=== PATIENT | male | born 1995 | race Caucasian/White ===

== ENCOUNTER 2018-02-28 09:48 | Emergency (ER) | payer MEDICAID, SELFPAY ==
[2018-02-28 09:58] VITALS: BP 125/72; PULSE 80; RESP 14; TEMP 37.1; O2SAT 98
--- NOTE | 2018-02-28 10:05 | DI.RPTCT_ITS ---
SYMPTOM/DIAGNOSIS: RLQ PAIN CT ABDOMEN AND PELVIS: Images were performed from the lung bases through the ischial tuberosities after IV and without oral contrast. The appendix is normal in diameter. There are no right lower quadrant inflammatory changes. There is a moderate quantity of stool. No bowel wall thickening or dilatation seen. There are mildly enlarged mesenteric lymph nodes greatest in the right lower quadrant. The findings could indicate mesenteric adenitis. There is no free air, free fluid or abscess. The bladder and prostate are unremarkable. The lung bases are clear. The heart size is normal. The liver, gallbladder, spleen, pancreas and adrenals are unremarkable. There are a few tiny left renal cysts. There is no evidence of renal calculi or hydronephrosis. IMPRESSION: Small mesenteric lymph nodes. This could represent mesenteric adenitis or could be within normal limits for the patient's age. There is no evidence of appendicitis.
[2018-02-28 10:40] LABS: Bilirubin Negative (Negative); Blood Negative (Negative); Clarity Clear; Glucose Negative (Negative); Ketones Negative (Negative); Leukocyte Esterase Negative (Negative); Nitrite Negative (Negative); Specific Gravity 1.025 (1.005-1.025); Urobilinogen 0.2 EU/dL (Up TO 0.2)
[2018-02-28] MEDS: Normal Saline 1,000 ML 1000 ML IV (11:20)
[2018-02-28] MEDS: Ketorolac 30 MG/ML VIAL IVP (11:27)
[2018-02-28] MEDS: Ondansetron O.D.T. 4 MG TABEF PO (11:27)
[2018-02-28 11:31] LABS: Abs Immature Grans 0.02 k/cumm (0.0-0.09); Absolute Basophil Count 0.07 k/cumm (0.0-0.2); Absolute Eosinophil Count 0.21 k/cumm (0.0-0.7); Absolute Lymphocyte Count 1.21 k/cumm (1.2-3.4); Absolute Monocyte Count 0.61 k/cumm (0.11-0.7); Absolute Neutrophil Count 4.21 k/cumm (1.2-6.7); Basophils % 1.1; Eosinophils % 3.3; HCT 45.3 % (40.0-50.0); HGB 16.1 g/dL (13.5-17.5); Immature Grans % 0.3; Lymphocytes % 19.1; Mean Corp. HGB Concentration 35.5 g/dL (32.0-36.0); Mean Corpuscular Hemoglobin 31.4 pg (27.0-33.0); Mean Corpuscular Volume 88.3 fL (80-95); Mean Platelet Volume 8.9 fL (8.0-11.0); Monocytes % 9.6; Neutrophils % 66.6; Platelet Count 256 x1000/uL (130-400); RBC 5.13 m/cumm (4.50-6.00); RBC Distribution Width 12.9 % (11.8-14.1); White Blood Cell Count 6.33 k/cumm (4.4-10.8)
[2018-02-28 11:43] LABS: ALT 31 U/L (12-78); AST 15 U/L (15-37); Alkaline Phosphatase 64 U/L (46-116); Anion Gap 7.5 mmol/L (3-11); BUN 12 mg/dL (7-18); Bilirubin, Total 0.3 mg/dL (0.2-1.0); CO2 27.5 mmol/L (21.0-32.0); CREATININE 0.84 mg/dL (0.70-1.30); Calcium 8.6 mg/dL (8.5-10.1); Chloride 105 mmol/L (98-107); Glucose 99 mg/dL (70-100); Lipase 225 U/L (73-393); Potassium 3.7 mmol/L (3.5-5.1); Sodium 140 mmol/L (136-145); Total Protein 6.8 g/dL (6.4-8.2)
--- NOTE | 2018-02-28 11:57 | ED.GENADUL_ITS ---
Disposition Clinical Impression: Acute mesenteric adenitis, Constipation Disposition: HOME Condition: Stable Instructions: Constipation (ED), High Fiber Diet (ED), Mesenteric Adenitis (ED) Additional Instructions: Feel free to return to the emergency department for any new or significant worsening of symptoms. Otherwise get plenty of rest and stay well-hydrated. For your constipation you may use [id number] stool softeners or gentle laxatives just take as directed on packaging. Staying well-hydrated will also help with your constipation. He may slowly advance her diet as tolerated. If you begin running fever chills, profuse and persistent vomiting, or any further concerns again feel free to return for reassessment. Otherwise if not improving over the next week or so follow-up with your primary care provider for recheck Prescriptions: Ondansetron ODT [Zofran Odt] 4 mg PO Q6H PRN #12 tabef PRN Reason: Nausea Referrals: Mario Gomez [Primary Care Provider] - 1 week (Follow-up with your primary care provider for reassessment in 1 week if not improving.) Forms: Work Release Medical Decision Making - Lab Data Laboratory Tests 02/28/18 02/28/18 02/28/18 10:30 11:20 11:20 WBC 6.33 RBC 5.13 Hgb 16.1 Hct 45.3 MCV 88.3 MCH 31.4 MCHC 35.5 RDW 12.9 Plt Count 256 MPV 8.9 Immature Gran % 0.3 Neutrophils % 66.6 Lymphocytes % 19.1 Monocytes % 9.6 Eosinophils % 3.3 Basophils % 1.1 Absolute Neutrophils 4.21 Absolute Lymphocytes 1.21 Absolute Monocytes 0.61 Absolute Eosinophils 0.21 Absolute Basophils 0.07 Sodium 140 Potassium 3.7 Chloride 105 Carbon Dioxide 27.5 Anion Gap 7.5 BUN 12 Creatinine 0.84 Estimated GFR/1.73 m2 >= 60.00 Glucose 99 Calcium 8.6 Total Bilirubin 0.3 AST 15 ALT 31 Alkaline Phosphatase 64 Total Protein 6.8 Albumin 4.0 Lipase 225 Urine Color Yellow Urine Clarity Clear Urine pH 6.0 Ur Specific [place] 1.025 Urine Protein Negative Urine Ketones Negative Urine Blood Negative Urine Nitrite Negative Urine Bilirubin Negative Urine Urobilinogen 0.2 Ur Leukocyte Esterase Negative Urine Glucose Negative Results reviewed for labs ordered during visit: Yes - Radiology Data Radiology results: report reviewed, image reviewed - Medical Decision Making Patient presenting to the emergency department for complaint of right lower abdominal pain. Physical exam does show tenderness at McBurney's point and clinical symptoms suggestive of appendicitis so plan to do labs, IV fluids, ketorolac, ODT Zofran, and CT with contrast. Given the patient is vomiting I do not feel that he could tolerate oral contrast at this time. Labs were reviewed and show no significant leukocytosis and no severe electrolyte abnormality. CT imaging was reviewed and discussed with radiologist and there are small mesenteric lymph nodes that may represent mesenteric lymphadenitis but also may be upper limits of normal, significant amount of stool, and small renal cyst without calculi are noted. There is no signs of bowel obstruction, appendix is normal in appearance, otherwise unremarkable examination. Patient was reassessed and stated continued discomfort but no worsening symptoms and no vomiting. Patient was then given a [place] due to plan of discharge with diagnosis of mesenteric lymphadenitis and p.o. challenge patient to ensure that vomiting has improved. Patient reassessed after the medication stated reduction and discomfort and also was able to tolerate p.o. intake of crackers and oral hydration. Patient was discharged with diagnosis of mesenteric lymphadenitis and encouraged to return for any new or worsening symptoms otherwise follow-up with his primary care provider if not improving over the next couple days. Patient was prescribed Zofran for nausea and encouraged to use [id number] Tylenol as needed for further pain control. After discussion of diagnosis and plan of care with patient patient agreed and stated no further needs, questions, or concerns at this time. History of Present Illness - General Chief complaint: Abd Prob Stated complaint: APPENDICITIS Time Seen by Provider: 02/28/18 10:05 Source: patient, RN notes reviewed Mode of arrival: ambulatory Limitations: no limitations - History of Present Illness Initial comments: Patient reports yesterday he started having some right sided abdominal pain. This was mild in nature but has become progressively worst throughout the day yesterday and this morning had more severity and even with attempting to drink water vomited. Patient states that he felt fever and chills last night but did not measure his temperature. He does state history of constipation but never feeling like this before. Patient denies any injury or trauma, chest pain, shortness of breath. Onset/Timin -: days(s) Location: abdomen Radiation: non-radiation Severity scale (1-10): 8 Quality: aching Consistency: constant Improves with: none Worsens with: none Associated Symptoms: denies other symptoms Treatments Prior to Arrival: none - Related Data Ondansetron ODT [Zofran Odt] 4 mg PO Q6H PRN #12 tabef 02/28/18 Allergies Allergy/AdvReac Type Severity Reaction Status Date / Time No Known Allergies Allergy Unverified 02/28/18 10:08 Review of Systems Constitutional: chills, fever. denies: diaphoresis, malaise ENT: denies: throat pain Respiratory: no symptoms reported. denies: shortness of breath Cardiovascular: denies: chest pain, palpitations Gastrointestinal: abdominal pain, nausea, vomiting. denies: diarrhea, constipation, hematemesis, melena, hematochezia Genitourinary: denies: dysuria, testicular pain, testicular mass Musculoskeletal: denies: back pain, joint swelling Skin: denies: rash Neurological: denies: headache Past Medical History - Past Medical History Medical history: no medical history Surgical history: no surgical history - Social History Smoking status: current everyday smoker Alcohol use: none Drug use: none Living Situation: lives with family General Exam - General Limitations: no limitations General appearance: alert, other (Patient obviously appears ill and uncomfortable but not toxic) - Head Head exam: Present: atraumatic - Eye Eye exam: Present: normal apperance - ENT ENT exam: Present: normal exam - Neck Neck exam: Present: normal inspection - Respiratory Respiratory exam: Present: normal lung sounds bilaterally. Absent: respiratory distress, wheezes, rales, rhonchi, stridor - Cardiovascular Cardiovascular Exam: Present: regular rate, normal rhythm, normal heart sounds. Absent: tachycardia, systolic murmur, diastolic murmur - GI/Abdominal GI/Abdominal exam: Present: tenderness (Right lower quadrant), guarding ( Voluntary), hypoactive bowel sounds. Absent: rebound, rigid, organomegaly, mass , bruit, pulsatile mass - Expanded GI/Abdominal Exam No standard instances GI/Abdominal exam: Present: tenderness at Mcburney's Point. Absent: psoas sign , Driver's sign, Rovsing's sign, ascites - Neurological Exam Neurological exam: Present: alert, oriented X3. Absent: altered - Skin Skin exam: Present: warm, dry, normal color. Absent: cyanosis, diaphoretic, pallor, mottled Course Vital Signs - 24 hr 02/28/18 09:58 Temperature 37.1 C Pulse 80 Respiratory 14 Rate Blood Pressure 125/72 Pulse Oximetry 98
[2018-02-28] MEDS: Omnipaque 350 MG/ML 100 ML BTL IJ (12:04)
[2018-02-28] MEDS: HYDROcodone 5/Acetaminophen 325 TAB PO (13:15)
[2018-02-28 13:41] VITALS: BP 120/56; PULSE 54; RESP 15; TEMP 36.8; O2SAT 99
[2018-02-28 13:48] VITALS: BP 120/56; PULSE 54; RESP 15; TEMP 36.8; O2SAT 99
== END 2018-02-28 13:49 | disposition home or self-care (01) ==
PROVIDERS: Nurse Practitioner Family; Emergency Provider Physician Assistant; PCP Physician Assistant
DX: I88.0 Nonspecific mesenteric lymphadenitis (principal); K59.00 Constipation, unspecified; R11.2 Nausea with vomiting, unspecified
CPT/HCPCS: 36415; 80053; 83690; 96361; 96374; 99285; 74177; 81003; 85025; 99284; J1885; J3490

== ENCOUNTER 2018-05-31 16:44 | Emergency (ER) | payer MEDICAID, SELFPAY ==
[2018-05-31] VITALS (8 sets, daily range): BP systolic 121–147; BP diastolic 61–72; PULSE 55–100; RESP 16–24; TEMP 36.6–37; O2SAT 97–100
--- NOTE | 2018-05-31 17:41 | DI.CT_ITS ---
SYMPTOM/DIAGNOSIS: CHEST PAIN RADIATING TO BACK THORAX CTA: CT angiography was performed with multi slice acquisition and multi planar and 3D reconstruction. Routine CT angiography of the chest was performed. There are no priors for comparison. The thoracic aorta is intact and normal caliber. No evidence of an aneurysm or dissection is seen. The pulmonary arteries are unremarkable. No filling defects are seen in the central pulmonary arteries to suggest pulmonary embolus. Heart size is within normal limits. No significant pericardial effusion or evidence of right ventricular dysfunction is present. No significant mediastinal, hilar or axillary adenopathy is present. The tracheobronchial tree is unremarkable. The lungs are clear. No pleural effusion or pneumothorax is identified. The bones are unremarkable. IMPRESSION: No acute abnormality.
--- NOTE | 2018-05-31 17:44 | ED.GENADUL_ITS ---
Discharge Plan Disposition Patient Disposition: HOME Discharge Details Chief Complaint: Anxiety Clinical Impression: Anxiety, Chest pain Primary Care Provider: Mario Gomez ED Provider: Johnathon Nava Home Meds and New Rx's Prescriptions: No Action No Known Home Meds RF: 0 Discharge Instructions Instructions: Chest Pain (ED), Anxiety (ED) Additional Instructions: Please contact your primary care physician to arrange follow-up. Return to the ER for any worsening or new concerning symptoms. Stand Alone Forms: Work Release Referrals: Mario Gomez [Primary Care Provider] - Discharge Data Discharge Date/Time-TO BE ENTERED AT DEPARTURE: 05/31/18 19:29 Medical Decision Making 17:40 -- 23yo m with anxiety, chest pain radiating to back and hand tingling bilateral. Tachycardic and mildly hypertensive. Plan to CTA chest. Valium for anxiety. 19:15 --ECG reviewed and interpreted by me: Normal sinus rhythm 73 bpm, normal axis, left atrial enlargement noted. Nondiagnostic. Labs reviewed and mild hypokalemia noted. Will give oral potassium replacement 20 mEq. CTA interpreted by radiology: No acute findings. Aorta normal with no aortic dissection or aneurysm. Lungs normal with no consolidation or masses. No pulmonary emboli. Patient is remained stable here in the emergency department. I suspect symptoms are related to anxiety. I will have him follow-up with his primary care physician encouraged to return should have any worsening or new concerning symptoms. HPI General Date/Time Provider Initiated Documentation: 05/31/18 17:26 . Limitations to Documentation: no limitations . Information obtained by: patient . HPI Narrative: 23-year-old male presents with chief complaint of chest discomfort. Patient notes that he was at work and feeling overwhelmed. He developed chest discomfort upper central chest that radiates to his back. Symptoms have been persistent over the past hour. Discomfort is moderate to severe. He has associated tingling in his hands and anxiety. Patient denies depression and suicidality Related Data Home Medications Medication Instructions Recorded Confirmed Unknown [No Known Home Meds] 05/31/18 05/31/18 Allergies Allergy/AdvReac Type Severity Reaction Status Date / Time No Known Allergies Allergy Unverified 05/31/18 16:53 General Stated Complaint: Anxiety ANGIE: 3 Review of Systems Review of Systems All systems reviewed & are unremarkable except as noted in HPI and below Cardiovascular Reports chest pain PFSH Social History Smoking/Tobacco Use Status: Current every day Exam Narrative Exam Narrative: tall thin male Const General: cooperative and no acute distress HENMT Head: normocephalic and atraumatic Mouth: moist mucous membranes Eyes Conjunctivae: normal conjunctivae Sclera: normal sclerae EOM: EOM intact bilaterally Neck Neck: trachea midline and supple Resp Auscultation: clear to auscultation bilaterally, no rales, no rhonchi and no wheezes Cardio Jugular venous pressure: no JVD Rate: tachycardic Rhythm: regular rhythm GI Palpation: soft, not firm, no guarding, no masses, not rigid and nontender Skin General skin exam: no rashes or lesions noted Neuro General: alert, awake, oriented x3 and tone normal Extrem General: no edema Psych Appearance: grossly normal Mental Status: mental status grossly normal Speech and Movement: speech and movement normal Affect: normal affect Course Vital Signs Temperature 36.6 C 05/31/18 16:48 Pulse 100 H 05/31/18 16:48 Respiratory Rate 18 05/31/18 16:48 Blood Pressure 147/61 H 05/31/18 16:48 Pulse Oximetry 100 05/31/18 16:48 Temperature 36.6 C 05/31/18 16:48 Temperature Source Skin 05/31/18 16:48 Pulse 100 H 05/31/18 16:48 Respiratory Rate 16 05/31/18 16:54 Respiratory Effort Short of Breath 05/31/18 16:54 Respiratory Depth Normal 05/31/18 16:54 Respiratory Pattern Normal 05/31/18 16:54 Blood Pressure 147/61 H 05/31/18 16:48 Pulse Oximetry 100 05/31/18 16:48 Pain Level 8 05/31/18 16:48
[2018-05-31] MEDS: Diazepam 5 MG TAB PO (17:52)
[2018-05-31 17:58] LABS: Abs Immature Grans 0.04 k/cumm (0.0-0.09); Absolute Basophil Count 0.06 k/cumm (0.0-0.2); Absolute Eosinophil Count 0.08 k/cumm (0.0-0.7); Absolute Lymphocyte Count 1.26 k/cumm (1.2-3.4); Absolute Monocyte Count 0.72 k/cumm (0.11-0.7); Basophils % 0.7; Eosinophils % 0.9; HCT 44.8 % (40.0-50.0); HGB 16.1 g/dL (13.5-17.5); Immature Grans % 0.5; Lymphocytes % 14.5; Mean Corp. HGB Concentration 35.9 g/dL (32.0-36.0); Mean Corpuscular Hemoglobin 31.7 pg (27.0-33.0); Mean Corpuscular Volume 88.2 fL (80-95); Mean Platelet Volume 8.6 fL (8.0-11.0); Monocytes % 8.3; Neutrophils % 75.1; Platelet Count 269 x1000/uL (130-400); RBC 5.08 m/cumm (4.50-6.00); RBC Distribution Width 12.5 % (11.8-14.1); White Blood Cell Count 8.66 k/cumm (4.4-10.8)
[2018-05-31 18:23] LABS: ALT 37 U/L (12-78); AST 16 U/L (15-37); Alkaline Phosphatase 63 U/L (46-116); Anion Gap 10.9 mmol/L (3-11); BUN 11 mg/dL (7-18); Bilirubin, Total 0.4 mg/dL (0.2-1.0); CO2 28.1 mmol/L (21.0-32.0); CREATININE 0.81 mg/dL (0.70-1.30); Calcium 9.3 mg/dL (8.5-10.1); Chloride 102 mmol/L (98-107); Glucose 116 mg/dL (70-100); Magnesium 2.1 mg/dL (1.8-2.4); Potassium 3.2 mmol/L (3.5-5.1); Sodium 141 mmol/L (136-145); Total Protein 7.3 g/dL (6.4-8.2)
[2018-05-31 18:27] LABS: Troponin I < 0.02 ng/mL (0.00-0.06)
[2018-05-31] MEDS: Omnipaque 350 MG/ML 100 ML BTL IJ (18:30)
[2018-05-31] MEDS: Potassium Chloride 10 MEQ TABCR 20 MEQ PO (18:55)
--- NOTE | 2018-05-31 19:01 | DI.VRAD_ITS ---
EXAM: CT Angiography Chest With Intravenous Contrast EXAM DATE/TIME: 05/31/2018 5:43 PM CLINICAL HISTORY: 23 years old, male; Pain; Other: Back pain TECHNIQUE: Axial computed tomographic angiography images of the chest with intravenous contrast using CT angiography protocol. Coronal and sagittal reformatted images were created and reviewed. MIP reconstructed images were created and reviewed. COMPARISON: CR CHEST 2 VIEWS PA,LAT 07/14/2013 2:50 PM FINDINGS: Pulmonary arteries: Normal. No pulmonary emboli. Aorta: Normal. No aortic aneurysm. No aortic dissection. Lungs: Normal. No consolidation. No masses. Pleural space: Normal. No pneumothorax. No pleural effusion. Heart: Normal. No cardiomegaly. No pericardial effusion. Bones/joints: Unremarkable. No acute fracture. Soft tissues: Unremarkable. Lymph nodes: Unremarkable. No enlarged lymph nodes. IMPRESSION: No acute findings. Dictated and Authenticated by: Cece Browne MD. Ordering:KIAH MALCOLM MD
== END 2018-05-31 19:29 | disposition home or self-care (01) ==
LOC: ER 19:41
PROVIDERS: Emergency Provider Student in an Organized Health Care Education/Training Program; PCP Physician Assistant
DX: F41.9 Anxiety disorder, unspecified (principal); R07.9 Chest pain, unspecified; R20.2 Paresthesia of skin; R00.0 Tachycardia, unspecified; E87.6 Hypokalemia
CPT/HCPCS: 36415; 71275; 80053; 93005; 99285; 83735; 84484; 85025; 93010; 99284; J3490

== ENCOUNTER 2018-06-21 17:17 | Emergency (ER) | payer MEDICAID, SELFPAY ==
[2018-06-21] VITALS (18 sets, daily range): BP systolic 117–150; BP diastolic 57–78; PULSE 42–61; RESP 11–25; TEMP 37.2; O2SAT 99–100
--- NOTE | 2018-06-21 17:33 | ED.GENADUL_ITS ---
Discharge Plan Disposition Patient Disposition: HOME Condition: Improving Discharge Details Chief Complaint: Chest Pain Clinical Impression: Muscle spasm Primary Care Provider: Mario Gomez ED Provider: Jerry Chaparro Home Meds and New Rx's Prescriptions: No Action No Known Home Meds RF: 0 Discharge Instructions Instructions: Muscle Spasm (ED) Additional Instructions: Home to rest today. Small, frequent sips of fluids to maintain hydration. Return to emergency department for any acute concerns or new or concerning symptoms Medical Decision Making 23-year-old male smoker presents with brief episode of anterior chest tightness and cramping. Resolved by the time of presentation. He is afebrile, pulse 55- 60, blood pressure 150/78. Differential diagnosis includes dehydration and muscle spasm, anxiety or panic attack which he has had in the past, and must exclude acute coronary syndrome. 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 Given fluid bolus and ketorolac. Patient improved, labs unremarkable and he is without further complaint. He is stable for discharge secondary to what was likely mild muscle spasm and anxiety reaction. Lab Data Lab results reviewed: Yes I reviewed the patient's lab results. Laboratory Results - last 24 hr 06/21/18 06/21/18 17:30 17:30 WBC 6.36 RBC 5.12 Hgb 16.3 Hct 45.9 MCV 89.6 MCH 31.8 MCHC 35.5 RDW 12.4 Plt Count 245 MPV 8.8 Immature Gran % 0.2 Neutrophils % 72.2 Lymphocytes % 16.0 Monocytes % 9.9 Eosinophils % 0.9 Basophils % 0.8 Absolute Neutrophils 4.59 Absolute Lymphocytes 1.02 L Absolute Monocytes 0.63 Absolute Eosinophils 0.06 Absolute Basophils 0.05 Sodium 142 Potassium 3.8 Chloride 103 Carbon Dioxide 30.2 Anion Gap 8.8 BUN 9 Creatinine 0.80 Estimated GFR/1.73 m2 >= 60.00 Glucose 101 H Calcium 9.3 Magnesium 1.9 Total Bilirubin 0.6 AST 13 L ALT 33 Alkaline Phosphatase 52 Troponin I < 0.02 Total Protein 7.4 Albumin 4.4 ECG Data Attestation: I personally reviewed and interpreted this ECG (s) as follows: Interpretation: Sinus rhythm with a rate of approximately 50, no acute ST segment elevation HPI General Mode of arrival: ambulatory . Date/Time Provider Initiated Documentation: 06/21/18 17:21 . Limitations to Documentation: no limitations . Information obtained by: patient . History of Present Illness 23 year old M presents to the emergency department with the chief complaint of Chest tightness, improved, described as moderate, Quality is described as other (Cramp), and is localized to the chest. Patient reports no radiation. Patient started experiencing this minute(s) and it has been now resolved. No relieving factors improve symptom(s), No exacerbating factors reported . Patient notes no other symptoms.. HPI Narrative: 23-year-old male smoker who works at the local [employer]. He presents complaining of the abrupt onset of anterior chest and upper extremity cramping that was constant and lasted minutes, improved on its own. He states he then began to feel palpitations and felt like his bilateral hands went numb. He did not have a headache, no focal motor weakness, no difficulty with speech , gait, or vision. He states he now feels improved Related Data Home Medications Medication Instructions Recorded Confirmed Unknown [No Known Home Meds] 05/31/18 06/21/18 Allergies Allergy/AdvReac Type Severity Reaction Status Date / Time No Known Allergies Allergy Unverified 06/21/18 17:24 General Stated Complaint: Orthopedic ANGIE: 3 Review of Systems Review of Systems 6 systems reviewed and otherwise negative [facility] Social History Smoking/Tobacco Use Status: Current every day Exam Narrative Exam Narrative: GEN: awake, alert, oriented 3. Pleasant, well groomed, interactive. HEAD: Normocephalic, atraumatic ENT: Mucous membranes moist, oropharynx unremarkable, External ear exam unremarkable EYES: PERRL, EOMI NECK: Full ROM, no AMIE, no menigismus CHEST/RESP: Nontender, clear to auscultation bilateral, no wheeze/rhonchi/rales CARDIOVASCULAR: RRR, no murmur, rub trevor. 2+ Rad pulse bilateral ABDOMEN: Soft, nontender, no mass. +Bowel sounds EXT: Full ROM, no edema, no rash Neuro: Grossly normal neurologic exam, conversant, interactive. Psych: Speech fluent, thoughts congruent, affect normal Course Vital Signs Temperature 37.2 C 06/21/18 17:20 Pulse 55 L 06/21/18 17:20 Respiratory Rate 18 06/21/18 17:20 Blood Pressure 150/78 H 06/21/18 17:20 Pulse Oximetry 100 06/21/18 17:20 Temperature 37.2 C 06/21/18 17:20 Temperature Source Temporal Artery Scan 06/21/18 17:20 Pulse 55 L 06/21/18 17:20 Respiratory Rate 18 06/21/18 17:20 Blood Pressure 150/78 H 06/21/18 17:20 Blood Pressure Position Sitting 06/21/18 17:20 Pulse Oximetry 100 06/21/18 17:20 Oxygen Delivery Method Room Air 06/21/18 17:20 Oxygen Flow Rate 0 06/21/18 17:20 Pain Level 8 06/21/18 17:20
[2018-06-21] MEDS: Normal Saline 1,000 ML 1000 ML IV (17:39)
[2018-06-21] MEDS: Ketorolac 30 MG/ML VIAL IVP (17:40)
[2018-06-21 17:47] LABS: Abs Immature Grans 0.01 k/cumm (0.0-0.09); Absolute Basophil Count 0.05 k/cumm (0.0-0.2); Absolute Eosinophil Count 0.06 k/cumm (0.0-0.7); Absolute Lymphocyte Count 1.02 k/cumm (1.2-3.4); Absolute Monocyte Count 0.63 k/cumm (0.11-0.7); Absolute Neutrophil Count 4.59 k/cumm (1.2-6.7); Basophils % 0.8; Eosinophils % 0.9; HCT 45.9 % (40.0-50.0); HGB 16.3 g/dL (13.5-17.5); Immature Grans % 0.2; Mean Corp. HGB Concentration 35.5 g/dL (32.0-36.0); Mean Corpuscular Hemoglobin 31.8 pg (27.0-33.0); Mean Corpuscular Volume 89.6 fL (80-95); Mean Platelet Volume 8.8 fL (8.0-11.0); Monocytes % 9.9; Neutrophils % 72.2; Platelet Count 245 x1000/uL (130-400); RBC 5.12 m/cumm (4.50-6.00); RBC Distribution Width 12.4 % (11.8-14.1); White Blood Cell Count 6.36 k/cumm (4.4-10.8)
[2018-06-21 18:04] LABS: ALT 33 U/L (12-78); AST 13 U/L (15-37); Albumin 4.4 g/dL (3.4-5.0); Alkaline Phosphatase 52 U/L (46-116); Anion Gap 8.8 mmol/L (3-11); BUN 9 mg/dL (7-18); Bilirubin, Total 0.6 mg/dL (0.2-1.0); CO2 30.2 mmol/L (21.0-32.0); Calcium 9.3 mg/dL (8.5-10.1); Chloride 103 mmol/L (98-107); Glucose 101 mg/dL (70-100); Magnesium 1.9 mg/dL (1.8-2.4); Potassium 3.8 mmol/L (3.5-5.1); Sodium 142 mmol/L (136-145); Total Protein 7.4 g/dL (6.4-8.2)
--- NOTE | 2018-06-21 18:10 | NUR.NOTE ---
Nursing Note:Attempted to call patient's x 2, patient says there was no answer.
[2018-06-21 18:11] LABS: Troponin I < 0.02 ng/mL (0.00-0.06)
== END 2018-06-21 19:07 | disposition home or self-care (01) ==
LOC: ER 19:45
PROVIDERS: Emergency Provider Emergency Medicine; PCP Physician Assistant
DX: M62.838 Other muscle spasm (principal); R07.9 Chest pain, unspecified
CPT/HCPCS: 36415; 80053; 93005; 96361; 96374; 99284; 83735; 84484; 85025; 93010; J1885

== ENCOUNTER 2018-07-05 14:22 | Emergency (ER) | payer MEDICAID, SELFPAY ==
[2018-07-05] VITALS (34 sets, daily range): BP systolic 117–137; BP diastolic 50–81; PULSE 42–80; RESP 18; TEMP 37; O2SAT 95–98
--- NOTE | 2018-07-05 14:58 | W.ED.GENAD ---
Discharge Plan Disposition Patient Disposition: HOME Condition: Stable Discharge Details Chief Complaint: Nk/Back Pain Clinical Impression: Back pain, Abnormal CT scan Primary Care Provider: Mario Gomez ED Provider: Tereza Nava Home Meds and New Rx's Prescriptions: No Action No Known Home Meds RF: 0 Discharge Instructions Instructions: Back Pain (ED) Additional Instructions: Please return immediately to the emergency department if you develop any new or worsening symptoms or if you become otherwise concerned. It is extremely important that you attend your scheduled appointment with your primary care doctor on 07/10/18 in follow-up for this visit, and also to follow-up with your abnormal CT scan results (abnormal finding of the esophagus) as we discussed. Stand Alone Forms: Work Release Referrals: Mario Gomez [Primary Care Provider] - Discharge Data Discharge Date/Time-TO BE ENTERED AT DEPARTURE: 07/05/18 20:00 Medical Decision Making <DOUG Caro - Last Filed: 07/08/18 22:58> Patient is a 23 year old male presenting today with c/c of back pain and muscle spasms. States that symptoms began one month ago. Had been fairly consistent until increase in pain and symptoms over the past few days. Denies fevers/chills. Denies trauma. No rash. No recent illness. Pain is maximal over midline area of T10-L3. Limited ROM, pain worse iwth forward flexion. He appear uncomfortable and stiff. Vital signs WNL. Patient works in [employer], no recent heavy lifting. Unknown if exposed to ticks but has been outside frequently over the summer. Denies any illnesses over the past few months. No CP or SOB. No GI upset. Denies chagne in urinary or bowel habits. Neuro exam is intact. Will obtain post void residual. No findings to suggest cauda equina. Patient reports he had a seizure one week ago. Reprots that his was awoken when he was shaking and had difficulty waking me up. Reprots that once he awoke, he felt normal and was at baseline. Does not sound to have had a postictal period. Was seen in [place] [facility], unknown diagnosis and workup. Will request these records. Plan to obtain labs including CBC, CMP, TSH, ESR, CRP, tick panel. Will give IV Toradol and PO Valium. Patient was given prescription for Flexeril after recent ED visit but reports this had no effect on symptoms. Exam and history are not consistent with transverse myelitis or cauda equina. Patient is otherwise healthy. Concidered neurologic, musculoskeletal, infectious vs. metabolic source. At the end of my shift, care was transitioned to Dr. Tereza Nava with labs and imaging pending. Post void residual 0 per nursing staff. <Tereza Nava MD - Last Filed: 07/05/18 22:42> Pt signed out to me at time of shift change by Kortney Marcial with imaging, labs pending. Upon record review, patient had CT chest 1 month ago. On my exam, patient with area of most significant tenderness L2 through L4. No overlying skin changes, no neuro deficit. Given stated level of pain without radiation or trauma, concern for possible congenital versus pathologic bony abnormality. Exam/history not consistent with cauda equina syndrome, epidural abscess/epidural hematoma or other cord compression, discitis, transverse myelitis. Lengthy discussion with patient regarding risks/benefits of CAT scan. Patient agrees to CT lumbar spine, will hold thoracic spine for now given recent imaging. CT shows L5 bulging disc, esophageal abnormality. Lengthy discussion with patient regarding findings of CT and importance of outpatient follow-up for back pain but also for these abnormal findings. Magnesium is low normal, will give 400 g of magnesium p.o. Lengthy discussion with patient regarding return to emergency department precautions and importance of outpatient follow-up. Patient is amenable to the plan. Patient walked out of the emergency department without issue. Medical Records Medical records reviewed: Yes I reviewed the patient's medical records. Imaging Data Radiologic Study: Attestation: I personally reviewed and interpreted this imaging study as follows: Radiologist's impression: CT Lumbar Spine FINDINGS: Vertebrae: There is no evidence of acute fracture. There is no evidence of malalignment or dislocation. Discs/Spinal canal/Neural foramina: Broad-based disc bulge at L5/S1 may represent degenerative disc disease. Soft tissues: Unremarkable. Liver: Hyperdensity in the distal esophagus (500 Hounsfield units) may be be secondary to medication or reflux after contrast or calcified mass. IMPRESSION: 1. There is no evidence of acute fracture. 2. There is no evidence of malalignment or dislocation. 3. Hyperdensity in the distal esophagus (500 Hounsfield units) may be be secondary to medication or reflux after contrast or calcified mass. 4. Broad-based disc bulge at L5/S1 may represent degenerative disc disease. Recommend MRI if clinically indicated . Lab Data Lab results reviewed: Yes I reviewed the patient's lab results. HPI <DOUG Caro - Last Filed: 07/08/18 22:58> General Mode of arrival: ambulatory. Date/Time Provider Initiated Documentation: 07/05/18 14:34. Limitations to Documentation: no limitations. Information obtained by: patient. History of Present Illness 23 year old M presents to the emergency department with the chief complaint of back pain and muscle spasms, described as severe, with intensity rated at 10. Quality is described as aching and constant, and is localized to the back, left, right, upper extremity and lower extremity. Patient reports no radiation. Patient started experiencing this month(s) (1) and it has been constant. No relieving factors improve symptom(s), No exacerbating factors reported . Patient notes chest pain (states he can have discomfort with chest wall spasms but no discomfort recently ) and seizure (states he has a seizure one week ago); denies cough, fever/chills, headaches, loss of appetite, nausea/vomiting, rash, shortness of breath, syncope and weakness. Patient did receive the following treatments prior to arrival, none Related Data Home Medications Medication Instructions Recorded Confirmed Unknown [No Known Home Meds] 05/31/18 07/05/18 Allergies Allergy/AdvReac Type Severity Reaction Status Date / Time No Known Allergies Allergy Unverified 07/05/18 14:33 General Stated Complaint: Nk/Back Pain ANGIE: 3 Review of Systems <DOUG Caro - Last Filed: 07/08/18 22:58> Constitutional Reports as per HPI, Denies chills, Denies fever(s), Denies headache(s), Denies lethargy and Denies poor appetite Eyes Denies change in vision ENT Denies headache(s) Cardiovascular Reports as per HPI, Denies chest pain, Denies dyspnea and Denies dyspnea on exertion Respiratory Denies cough, Denies dyspnea, Denies dyspnea on exertion and Denies wheezing Gastrointestinal Reports as per HPI, Denies abdominal pain, Denies diarrhea, Denies nausea and Denies vomiting Genitourinary Denies system reviewed and no additional complaints, except as docu (denies change in urinary habits), Denies dysuria and Denies flank pain Musculoskeletal Reports as per HPI and Denies back pain Integumentary/Breasts Reports as per HPI and Denies rash Neurologic Denies headache(s) Allergic/Immunologic Denies wheezing Exam <DOUG Caro - Last Filed: 07/08/18 22:58> Const General: cooperative, healthy appearing, uncomfortable (patient appears stiff and uncomfortable), no acute distress and well developed Nutritional Appearance: average body habitus and well nourished Orientation: alert, awake and oriented x3 HENMT Head: normal to inspection, normocephalic and atraumatic Ears: hearing grossly normal bilaterally, external ears normal and TM's normal bilaterally General nose exam: external nose normal Face and sinus: normal facial exam and face symmetric Mouth: tongue normal and mucous membranes dry (patient appears dry on exam) Eyes General: appearance normal, both eyes and all related structures Alignment and Position: alignment normal Periorbital: periorbital findings normal Conjunctivae: conjunctivae normal Pupils: PERRL EOM: EOM intact bilaterally Neck Neck: normal visual inspection, full ROM, no lymphadenopathy and no meningeal signs Chest Chest: normal inspection of the chest, normal palpation of entire chest wall and no crepitus Resp Effort & Inspection: normal respiratory effort, able to speak in complete sentences and no respiratory distress Auscultation: clear to auscultation bilaterally, no rales, no rhonchi and no wheezes Cardio Rate: regular rate Rhythm: regular rhythm Heart Sounds: S1 normal and S2 normal GI Inspection: normal to inspection, no edema and non-distended Palpation: soft, no hepatosplenomegaly, not firm, no guarding, not rigid and nontender Auscultation: normal bowel sounds Back/Spine/Pelvis Back: no CVA tenderness Cervical Spine: normal cervical lordosis and cervical ROM normal Thoracic/Lumbar Spine: No thoracic and lumbar spine normal to inspection (Pain with midline palpation T10-L3), bend over test abnormal (with increased with forward flexion), pain with thoraco-lumbar ROM (pain improved with extension. Discomfort with rotational movements, equal bilaterally), No paraspinal tenderness and No scoliosis Skin General skin exam: no rashes or lesions noted Trauma: no lacerations or abrasions Neuro General: alert, awake, oriented x3, gait normal, tone normal and moves all extremities Cranial Nerves: CN's II-XI intact bilaterally Cognition: normal cognition Speech: speech normal Gait: normal gait Motor: muscle tone normal throughout, strength 5/5 throughout, no pronator drift, no movement abnormalities noted and no fasciculations Sensory Exam: no sensory deficits noted (no saddle paresthesias) DTR's: Rt Biceps: 2+, Lt Biceps: 2+, Rt Brachioradialis: 2+, Lt Brachioradialis: 2+, Rt Patellar: 2+, Lt Patellar: 2+, Rt Ankle: 2+ and Lt Ankle: 2+ Plantar Reflexes: Equivocal: bilateral Coordination: [id number] test normal, keka-sw-nnec test normal and Romberg test normal Extrem General: normal to inspection, normal capillary refill, no pedal edema, no calf tenderness and normal gait Psych Appearance: grossly normal and well kempt Mental Status: mental status grossly normal Speech and Movement: speech and movement normal Course <DOUG Caro - Last Filed: 07/08/18 22:58> Vital Signs Temperature 37 C 07/05/18 14:26 Pulse 80 07/05/18 14:26 Respiratory Rate 18 07/05/18 14:26 Blood Pressure 137/81 07/05/18 14:26 Pulse Oximetry 97 07/05/18 14:26 Temperature 37 C 07/05/18 14:26 Temperature Source Temporal Artery Scan 07/05/18 14:26 Pulse 80 07/05/18 14:26 Respiratory Rate 18 07/05/18 14:26 Respiratory Effort Non-Labored 07/05/18 14:31 Blood Pressure 137/81 07/05/18 14:26 Blood Pressure Position Supine 07/05/18 14:26 Pulse Oximetry 97 07/05/18 14:26 Oxygen Delivery Method Room Air 07/05/18 14:26 Oxygen Flow Rate 0 07/05/18 14:26 Pain Level 10 07/05/18 14:26 Sign Out <DOUG Caro - Last Filed: 07/08/18 22:58> Sign Out Data: Sign Out Comment: Sign out given to Dr. Tereza Nava with imaging and labs pending. Last updated by Tanika Marcial PA at 07/05/18 16:12
[2018-07-05] MEDS: Normal Saline 1,000 ML 1000 ML IV (15:28)
[2018-07-05 15:33] LABS: Absolute Basophil Count 0.05 k/cumm (0.0-0.2); Absolute Eosinophil Count 0.06 k/cumm (0.0-0.7); Absolute Lymphocyte Count 0.92 k/cumm (1.2-3.4); Absolute Monocyte Count 0.64 k/cumm (0.11-0.7); Absolute Neutrophil Count 3.46 k/cumm (1.2-6.7); Eosinophils % 1.2; HCT 46.8 % (40.0-50.0); HGB 16.8 g/dL (13.5-17.5); Lymphocytes % 17.9; Mean Corp. HGB Concentration 35.9 g/dL (32.0-36.0); Mean Corpuscular Hemoglobin 31.9 pg (27.0-33.0); Mean Platelet Volume 8.6 fL (8.0-11.0); Monocytes % 12.5; Neutrophils % 67.4; Platelet Count 223 x1000/uL (130-400); RBC 5.26 m/cumm (4.50-6.00); RBC Distribution Width 12.3 % (11.8-14.1); White Blood Cell Count 5.13 k/cumm (4.4-10.8)
[2018-07-05] MEDS: Diazepam 5 MG TAB PO (15:54)
[2018-07-05] MEDS: Ketorolac 30 MG/ML VIAL IVP (15:54)
--- NOTE | 2018-07-05 15:57 | ED.GENADUL_ITS ---
Discharge Plan Disposition Patient Disposition: HOME Condition: Stable Discharge Details Chief Complaint: Nk/Back Pain Clinical Impression: Back pain, Abnormal CT scan Primary Care Provider: Mario Gomez ED Provider: Tereza Nava Home Meds and New Rx's Prescriptions: No Action No Known Home Meds RF: 0 Discharge Instructions Instructions: Back Pain (ED) Additional Instructions: Please return immediately to the emergency department if you develop any new or worsening symptoms or if you become otherwise concerned. It is extremely important that you attend your scheduled appointment with your primary care doctor on 07/10/18 in follow-up for this visit, and also to follow-up with your abnormal CT scan results (abnormal finding of the esophagus) as we discussed. Stand Alone Forms: Work Release Referrals: Mario Gomez [Primary Care Provider] - Discharge Data Discharge Date/Time-TO BE ENTERED AT DEPARTURE: 07/05/18 20:00 Medical Decision Making <DOUG Caro - Last Filed: 07/08/18 22:58> Patient is a 23 year old male presenting today with c/c of back pain and muscle spasms. States that symptoms began one month ago. Had been fairly consistent until increase in pain and symptoms over the past few days. Denies fevers/ chills. Denies trauma. No rash. No recent illness. Pain is maximal over midline area of T10-L3. Limited ROM, pain worse iwth forward flexion. He appear uncomfortable and stiff. Vital signs WNL. Patient works in [employer], no recent heavy lifting. Unknown if exposed to ticks but has been outside frequently over the summer. Denies any illnesses over the past few months. No CP or SOB. No GI upset. Denies chagne in urinary or bowel habits. Neuro exam is intact. Will obtain post void residual. No findings to suggest cauda equina. Patient reports he had a seizure one week ago. Reprots that his was awoken when he was shaking and had difficulty waking me up. Reprots that once he awoke, he felt normal and was at baseline. Does not sound to have had a postictal period. Was seen in [place] ER, unknown diagnosis and workup. Will request these records. Plan to obtain labs including CBC, CMP, TSH, ESR, CRP, tick panel. Will give IV Toradol and PO Valium. Patient was given prescription for Flexeril after recent ED visit but reports this had no effect on symptoms. Exam and history are not consistent with transverse myelitis or cauda equina. Patient is otherwise healthy. Concidered neurologic, musculoskeletal, infectious vs. metabolic source. At the end of my shift, care was transitioned to Dr. Tereza Nava with labs and imaging pending. Post void residual 0 per nursing staff. <Tereza Nava MD - Last Filed: 07/05/18 22:42> Pt signed out to me at time of shift change by Kortney Marcial with imaging, labs pending. Upon record review, patient had CT chest 1 month ago. On my exam, patient with area of most significant tenderness L2 through L4. No overlying skin changes, no neuro deficit. Given stated level of pain without radiation or trauma, concern for possible congenital versus pathologic bony abnormality. Exam/history not consistent with cauda equina syndrome, epidural abscess/ epidural hematoma or other cord compression, discitis, transverse myelitis. Lengthy discussion with patient regarding risks/benefits of CAT scan. Patient agrees to CT lumbar spine, will hold thoracic spine for now given recent imaging. CT shows L5 bulging disc, esophageal abnormality. Lengthy discussion with patient regarding findings of CT and importance of outpatient follow-up for back pain but also for these abnormal findings. Magnesium is low normal, will give 400 g of magnesium p.o. Lengthy discussion with patient regarding return to emergency department precautions and importance of outpatient follow-up. Patient is amenable to the plan. Patient walked out of the emergency department without issue. Medical Records Medical records reviewed: Yes I reviewed the patient's medical records. Imaging Data Radiologic Study: Attestation: I personally reviewed and interpreted this imaging study as follows: Radiologist's impression: CT Lumbar Spine FINDINGS: Vertebrae: There is no evidence of acute fracture. There is no evidence of malalignment or dislocation. Discs/Spinal canal/Neural foramina: Broad-based disc bulge at L5/S1 may represent degenerative disc disease. Soft tissues: Unremarkable. Liver: Hyperdensity in the distal esophagus (500 Hounsfield units) may be be secondary to medication or reflux after contrast or calcified mass. IMPRESSION: 1. There is no evidence of acute fracture. 2. There is no evidence of malalignment or dislocation. 3. Hyperdensity in the distal esophagus (500 Hounsfield units) may be be secondary to medication or reflux after contrast or calcified mass. 4. Broad-based disc bulge at L5/S1 may represent degenerative disc disease. Recommend MRI if clinically indicated . Lab Data Lab results reviewed: Yes I reviewed the patient's lab results. HPI <DOUG Crao - Last Filed: 07/08/18 22:58> General Mode of arrival: ambulatory . Date/Time Provider Initiated Documentation: 07/05/18 14:34 . Limitations to Documentation: no limitations . Information obtained by: patient . History of Present Illness 23 year old M presents to the emergency department with the chief complaint of back pain and muscle spasms, described as severe, with intensity rated at 10. Quality is described as aching and constant, and is localized to the back, left, right, upper extremity and lower extremity. Patient reports no radiation. Patient started experiencing this month(s) (1) and it has been constant. No relieving factors improve symptom(s), No exacerbating factors reported . Patient notes chest pain (states he can have discomfort with chest wall spasms but no discomfort recently ) and seizure (states he has a seizure one week ago); denies cough, fever/chills, headaches, loss of appetite, nausea/ vomiting, rash, shortness of breath, syncope and weakness. Patient did receive the following treatments prior to arrival, none Related Data Home Medications Medication Instructions Recorded Confirmed Unknown [No Known Home Meds] 05/31/18 07/05/18 Allergies Allergy/AdvReac Type Severity Reaction Status Date / Time No Known Allergies Allergy Unverified 07/05/18 14:33 General Stated Complaint: Nk/Back Pain ANGIE: 3 Review of Systems <DOUG Caro - Last Filed: 07/08/18 22:58> Constitutional Reports as per HPI, Denies chills, Denies fever(s), Denies headache(s), Denies lethargy and Denies poor appetite Eyes Denies change in vision ENT Denies headache(s) Cardiovascular Reports as per HPI, Denies chest pain, Denies dyspnea and Denies dyspnea on exertion Respiratory Denies cough, Denies dyspnea, Denies dyspnea on exertion and Denies wheezing Gastrointestinal Reports as per HPI, Denies abdominal pain, Denies diarrhea, Denies nausea and Denies vomiting Genitourinary Denies system reviewed and no additional complaints, except as docu (denies change in urinary habits), Denies dysuria and Denies flank pain Musculoskeletal Reports as per HPI and Denies back pain Integumentary/Breasts Reports as per HPI and Denies rash Neurologic Denies headache(s) Allergic/Immunologic Denies wheezing Exam <DOUG Caro - Last Filed: 07/08/18 22:58> Const General: cooperative, healthy appearing, uncomfortable (patient appears stiff and uncomfortable), no acute distress and well developed Nutritional Appearance: average body habitus and well nourished Orientation: alert, awake and oriented x3 HENMT Head: normal to inspection, normocephalic and atraumatic Ears: hearing grossly normal bilaterally, external ears normal and TM's normal bilaterally General nose exam: external nose normal Face and sinus: normal facial exam and face symmetric Mouth: tongue normal and mucous membranes dry (patient appears dry on exam) Eyes General: appearance normal, both eyes and all related structures Alignment and Position: alignment normal Periorbital: periorbital findings normal Conjunctivae: conjunctivae normal Pupils: PERRL EOM: EOM intact bilaterally Neck Neck: normal visual inspection, full ROM, no lymphadenopathy and no meningeal signs Chest Chest: normal inspection of the chest, normal palpation of entire chest wall and no crepitus Resp Effort & Inspection: normal respiratory effort, able to speak in complete sentences and no respiratory distress Auscultation: clear to auscultation bilaterally, no rales, no rhonchi and no wheezes Cardio Rate: regular rate Rhythm: regular rhythm Heart Sounds: S1 normal and S2 normal GI Inspection: normal to inspection, no edema and non-distended Palpation: soft, no hepatosplenomegaly, not firm, no guarding, not rigid and nontender Auscultation: normal bowel sounds Back/Spine/Pelvis Back: no CVA tenderness Cervical Spine: normal cervical lordosis and cervical ROM normal Thoracic/Lumbar Spine: No thoracic and lumbar spine normal to inspection (Pain with midline palpation T10-L3), bend over test abnormal (with increased with forward flexion), pain with thoraco-lumbar ROM (pain improved with extension. Discomfort with rotational movements, equal bilaterally), No paraspinal tenderness and No scoliosis Skin General skin exam: no rashes or lesions noted Trauma: no lacerations or abrasions Neuro General: alert, awake, oriented x3, gait normal, tone normal and moves all extremities Cranial Nerves: CN's II-XI intact bilaterally Cognition: normal cognition Speech: speech normal Gait: normal gait Motor: muscle tone normal throughout, strength 5/5 throughout, no pronator drift , no movement abnormalities noted and no fasciculations Sensory Exam: no sensory deficits noted (no saddle paresthesias) DTR's: Rt Biceps: 2+, Lt Biceps: 2+, Rt Brachioradialis: 2+, Lt Brachioradialis : 2+, Rt Patellar: 2+, Lt Patellar: 2+, Rt Ankle: 2+ and Lt Ankle: 2+ Plantar Reflexes: Equivocal: bilateral Coordination: [id number] test normal, [id number] test normal and Romberg test normal Extrem General: normal to inspection, normal capillary refill, no pedal edema, no calf tenderness and normal gait Psych Appearance: grossly normal and well kempt Mental Status: mental status grossly normal Speech and Movement: speech and movement normal Course <DOUG Caro - Last Filed: 07/08/18 22:58> Vital Signs Temperature 37 C 07/05/18 14:26 Pulse 80 07/05/18 14:26 Respiratory Rate 18 07/05/18 14:26 Blood Pressure 137/81 07/05/18 14:26 Pulse Oximetry 97 07/05/18 14:26 Temperature 37 C 07/05/18 14:26 Temperature Source Temporal Artery Scan 07/05/18 14:26 Pulse 80 07/05/18 14:26 Respiratory Rate 18 07/05/18 14:26 Respiratory Effort Non-Labored 07/05/18 14:31 Blood Pressure 137/81 07/05/18 14:26 Blood Pressure Position Supine 07/05/18 14:26 Pulse Oximetry 97 07/05/18 14:26 Oxygen Delivery Method Room Air 07/05/18 14:26 Oxygen Flow Rate 0 07/05/18 14:26 Pain Level 10 07/05/18 14:26 Sign Out <DOUG Caro - Last Filed: 07/08/18 22:58> Sign Out Data: Sign Out Comment: Sign out given to Dr. Tereza Nava with imaging and labs pending. Last updated by Tanika Marcial PA at 07/05/18 16:12
[2018-07-05 15:58] LABS: ALT 33 U/L (12-78); AST 15 U/L (15-37); Albumin 4.5 g/dL (3.4-5.0); Alkaline Phosphatase 57 U/L (46-116); Anion Gap 11.4 mmol/L (3-11); BUN 12 mg/dL (7-18); Bilirubin, Total 0.5 mg/dL (0.2-1.0); CO2 28.6 mmol/L (21.0-32.0); CREATININE 0.79 mg/dL (0.70-1.30); Calcium 9.1 mg/dL (8.5-10.1); Chloride 104 mmol/L (98-107); Glucose 97 mg/dL (70-100); Sodium 144 mmol/L (136-145); TSH (W/Ref FT4) 0.67 uIU/mL (0.358-3.74); Total Protein 7.6 g/dL (6.4-8.2)
[2018-07-05 16:03] LABS: C-Reactive Protein < 0.05 mg/dL (0.0-0.3)
[2018-07-05 16:10] LABS: ESR 15 MM/HR (0-15)
[2018-07-05 16:13] LABS: Bilirubin Negative (Negative); Blood Negative (Negative); Clarity Clear; Glucose Negative (Negative); Ketones Negative (Negative); Leukocyte Esterase Negative (Negative); Nitrite Negative (Negative); Specific Gravity 1.015 (1.005-1.025); Urobilinogen 0.2 EU/dL (Up TO 0.2)
[2018-07-05 16:56] LABS: Magnesium 1.8 mg/dL (1.8-2.4)
[2018-07-05] MEDS: Magnesium Oxide 400 MG TAB PO (17:25)
--- NOTE | 2018-07-05 17:35 | DI.CT_ITS ---
SYMPTOMS/DIAGNOSIS: BACK PAIN, NO TRAUMA CT OF THE LUMBAR SPINE: There is no evidence of fracture, lytic or blastic bony lesion. There is no evidence of disc herniation. There is an apparent tablet in the lower esophagus , just above the GE junction. The visualized portions of the abdominal organs are unremarkable. No abnormality is seen in the small portion of the lungs visible on the exam. IMPRESSION: Negative CT of the lumbar. There is an incidental density seen in the lower esophagus which could represent an ingested tablet.
--- NOTE | 2018-07-05 18:11 | DI.VRAD_ITS ---
EXAM: CT Lumbar Spine Without Contrast EXAM DATE/TIME: 07/05/2018 5:21 PM CLINICAL HISTORY: 23 years old, male; Pain; Low back pain; Patient HX: Back pain, no trauma. Numbness weakness. Right leg. TECHNIQUE: Axial computed tomography images of the lumbar spine without intravenous contrast. All CT scans at this facility use at least one of these dose optimization techniques: automated exposure control; mA and/or kV adjustment per patient size (includes targeted exams where dose is matched to clinical indication); or iterative reconstruction. Coronal and sagittal reformatted images were created and reviewed. COMPARISON: No relevant prior studies available. FINDINGS: Vertebrae: There is no evidence of acute fracture. There is no evidence of malalignment or dislocation. Discs/Spinal canal/Neural foramina: Broad-based disc bulge at L5/S1 may represent degenerative disc disease. Soft tissues: Unremarkable. Liver: Hyperdensity in the distal esophagus (500 Hounsfield units) may be be secondary to medication or reflux after contrast or calcified mass. IMPRESSION: 1. There is no evidence of acute fracture. 2. There is no evidence of malalignment or dislocation. 3. Hyperdensity in the distal esophagus (500 Hounsfield units) may be be secondary to medication or reflux after contrast or calcified mass. 4. Broad-based disc bulge at L5/S1 may represent degenerative disc disease. Recommend MRI if clinically indicated . Dictated and Authenticated by: Cece Browne MD. Ordering:GREG AGUILAR MD
[2018-07-08 10:53] LABS: Lyme Ab w Rflx to Lyme Confirm Negative
[2018-07-09 23:09] LABS: Anaplasma phagocytophilum Negative (Negative); B. miyamotoi PCR Negative (Negative); Babesia divergens/MO-1 Negative (Negative); Babesia duncani Negative (Negative); Babesia microti Negative (Negative); Ehrlichia chaffeensis Negative (Negative); Ehrlichia ewingii/canis Negative (Negative); Ehrlichia muris eauclairensis Negative (Negative)
== END 2018-07-05 20:00 | disposition home or self-care (01) ==
PROVIDERS: Physician Assistant; Emergency Provider Student in an Organized Health Care Education/Training Program; PCP Physician Assistant
DX: M54.5 Low back pain (principal); R93.3 Abnormal findings on diagnostic imaging of other parts of digestive tract
CPT/HCPCS: 80053; 85652; 96361; 96374; 99284; 72131; 81003; 83735; 84443; 85025; 86140; 86618; 87798; J1885

== ENCOUNTER 2018-07-26 14:39 | Emergency (ER) | payer MEDICAID, SELFPAY ==
[2018-07-26] VITALS (13 sets, daily range): BP systolic 109–132; BP diastolic 55–72; PULSE 42–78; RESP 16–18; TEMP 36.5–36.9; O2SAT 97–100
[2018-07-26] MEDS: Normal Saline 1,000 ML 1000 ML IV (14:45)
--- NOTE | 2018-07-26 14:46 | W.ED.GENAD ---
Discharge Plan Disposition Patient Disposition: HOME Condition: Good Discharge Details Chief Complaint: Seizure Clinical Impression: Seizure Reason For Visit: ALICIA Primary Care Provider: Mario Gomez ED Provider: Roger Urena Home Meds and New Rx's Prescriptions: No Action gabapentin 300 mg Tablet Extended Release 24 Hr 300 mg PO TID RF: 0 ibuprofen [IBU-200] 200 mg Tablet 400 mg PO QID PRNRF: 0 levetiracetam [Keppra] 500 mg Tablet 500 mg PO BID RF: 0 Discharge Instructions Instructions: Recurrent Seizures in Adults (ED) Additional Instructions: Please take your Keppra 500 mg twice daily. Please get plenty of sleep, avoid alcohol, and closely follow-up with your neurologist for your scheduled EEG and MRI. If you notice any worsening of your symptoms, or any new symptoms such as vomiting, diarrhea, fever, chills, shortness of breath, chest pain, numbness, weakness, or fainting , please return immediately to the emergency department for reevaluation. Please follow up with your primary care provider as soon as possible for reassessment and reevaluation. As always, it was a pleasure participating in your medical care today. Referrals: Mario Gomez [Primary Care Provider] - Medical Decision Making This is a pleasant 23-year-old male who presents today for evaluation of seizure. He was recently diagnosed with a seizure a month ago, he has been taking gabapentin from his PCP, and recently saw a neurologist from [place] Dr. Carmichael, who prescribed medication which the patient is not filled for the past week, nor obviously taken. This is his first seizure since he was seen by the neurologist. He is scheduled for an outpatient MRI and EEG but has not yet had these. Seizure lasted a few minutes while he was in the passenger seat of his 's car. He had no bowel or bladder incontinence. No tongue mastication. Physical exam demonstrates no focal neurologic deficits, no evidence of significant illness, fever, or meningitis. I am concerned that the patient's seizures may be secondary to not taking the medication that was recently prescribed. We will rehydrate the patient, and reassess. We will figure out what the medication was from the local pharmacy. Of note the patient did have some alcohol last night, this may be a precipitating factor, however I am uncertain. With no neurologic deficits, I do not think that a CT head is indicated at this time. 3:57pm Patient's laboratory workup is returned relatively benign. No significant abnormalities. No significant electrolyte deficiencies. We did get the CT scan results from [facility] that was dated 07/14/18 and it was read impression: Normal examination. Has signed and read by Dr. Grzegorz Harvey MD. we also found the prescription result from [place] which was a prescription for Keppra 500 twice daily for seizures. We will give him a loading dose of 1 g of Keppra here, and he states that he will be able to fill his prescription this afternoon. With a continued normal neurologic exam, no focal neurologic deficits, no evidence of meningitis, and medical noncompliance being at the highest end of my differential for the cause of his symptoms I feel he can be safely discharged home. I recommended that he avoid any alcohol, continue to get good amount of sleep, and closely follow-up with his neurologist. We discussed red flags for which to return, I have extensively reviewed the treatment plan and discharge instructions with the patient and their family. I have addressed all patient concerns at this time. The patient and family was made aware of what symptoms to monitor for that would warrant a return to the emergency department. Discussed the plan with the patient and family, they demonstrate verbal understanding and agreement with our assessment and plan at this time. HPI General Date/Time Provider Initiated Documentation: 07/26/18 14:46. HPI Narrative: This is a 23-year-old male with a past medical history of seizures that was recently diagnosed 1 month ago. He just saw a neurologist Dr. Fredo Tai 1 week ago. He has been on gabapentin by his PCP for seizures however Dr. Carmichael prescribed a new medication, which the patient has not started taking and does not know what it was. Since then this is his first seizure since his last visit. His seizure occurred today roughly an hour prior to arrival. His tonic-clonic/grand mal. He was in the passenger seat and his was driving him. It lasted just a few minutes and resolved on its own. He had no bowel or bladder incontinence. He did not bite his tongue. He does admit to a mild to moderate headache at this time, as well as some tingling in his legs which she states her symptoms that been calm and after his seizures. He does admit to drinking some alcohol last night but denies any IV or illicit drugs. He denies any other medication changes or new behaviors. Patient denies any significant past surgical history or past family history. He denies any IV or illicit drug use. He has no other complaints or modifying factors at this Related Data Home Medications Medication Instructions Recorded Confirmed gabapentin 300 mg PO TID 07/26/18 07/26/18 ibuprofen [IBU-200] 400 mg PO QID PRN 07/26/18 07/26/18 levetiracetam [Keppra] 500 mg PO BID 07/26/18 07/26/18 Allergies Allergy/AdvReac Type Severity Reaction Status Date / Time No Known Allergies Allergy Unverified 07/26/18 14:47 General Stated Complaint: Seizure ANGIE: 2 Review of Systems Review of Systems All systems reviewed & are unremarkable except as noted in HPI and below PFSH Social History Smoking/Tobacco Use Status: Current every day Exam Narrative Exam Narrative: 1.Const: Well-nourished, Well-developed, appearing stated age 2.Eyes: PERRL, no conjunctival injection, and symmetrical lids. 3.ENT: Atraumatic external nose and ears. Moist MM. Neck: Symmetric, trachea midline, No thyromegaly. Patient demonstrates good movement of cervical neck. There is no nuchal rigidity, no nuchal tenderness. Patient is able to flex the neck without any difficulty or significant pain. Negative Kernig's and Brudzinski sign. No evidence of bite wheat on the tongue, or lips. 4.CVS: +S1/S2, No murmurs or gallops. Peripheral pulses 2+ and equal in all extremities. Brisk capillary refill in all extremities. 5.RESP: Unlabored respiratory effort. Clear to auscultation bilaterally. No wheezes rales or rhonchi 6.GI: Soft, Nontender/Nondistended, No hepatosplenomegaly. No guarding or rebound. 7.MSK: Normocephalic/Atraumatic, Extremities w/o deformity or ttp No cyanosis or clubbing, Normal movement of all extremities. No midline tenderness to palpation over the CTLS spine. Normal ROM in flexion, extension, side bend, and rotation. Patient has +5 out of 5 strength in the lower extremities in dorsiflexion and plantarflexion, knee flexion and extension, hip flexion and extension. There is +2 over 2 dorsalis pedis pulses bilaterally. There is normal sensation to the skin with light touch at the foot, knee, and hip. Normal saddle sensation. Good sensation over the deep sural nerve area bilaterally. Rectal exam deferred. Reflexes are +2 over 4 in the patellar reflex bilaterally. +5 out of 5 strength in the medial, ulnar, radial nerve distribution bilaterally in the hands as well as intact light touch sensation to these dermatomes on the hands 8.Skin: Warm, Dry. No rashes or lesions. 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 Sensation grossly intact, no focal neurologic deficits. All 6 cardinal planes of vision are fully intact. No evidence of rotatory or vertical nystagmus. The patient demonstrated a normal [id number], good dexterity. There was no evidence of dysdiadochokinesia. Patient was able to ambulate without difficulty. There was no wide-based gait. Romberg, and [id number] are both normal on testing. Sensation was intact bilaterally as well as muscle strength bilaterally for all extremities. Patient was able to verbalize butter cup with no slurring, or miss pronunciation. 10.Psych: (AAO) x3. Appropriate mood and affect Course Vital Signs Temperature 36.9 C 07/26/18 14:40 Pulse 77 07/26/18 14:40 Respiratory Rate 16 07/26/18 14:40 Blood Pressure 132/72 07/26/18 14:40 Pulse Oximetry 98 07/26/18 14:40 Temperature 36.9 C 07/26/18 14:40 Temperature Source Tympanic 07/26/18 14:40 Pulse 77 07/26/18 14:40 Respiratory Rate 16 07/26/18 14:40 Respiratory Effort Non-Labored 07/26/18 14:44 Blood Pressure 132/72 07/26/18 14:40 Blood Pressure Position Sitting 07/26/18 14:40 Pulse Oximetry 98 07/26/18 14:40 Oxygen Delivery Method Room Air 07/26/18 14:40 Oxygen Flow Rate 0 07/26/18 14:40 Pain Level 10 07/26/18 14:40
[2018-07-26] MEDS: Acetaminophen 500 MG TAB 1000 MG PO (14:50)
--- NOTE | 2018-07-26 14:53 | ED.GENADUL_ITS ---
Discharge Plan Disposition Patient Disposition: HOME Condition: Good Discharge Details Chief Complaint: Seizure Clinical Impression: Seizure Reason For Visit: ALICIA Primary Care Provider: Mario Gomez ED Provider: Roger Urena Home Meds and New Rx's Prescriptions: No Action gabapentin 300 mg Tablet Extended Release 24 Hr 300 mg PO TID RF: 0 ibuprofen [IBU-200] 200 mg Tablet 400 mg PO QID PRNRF: 0 levetiracetam [Keppra] 500 mg Tablet 500 mg PO BID RF: 0 Discharge Instructions Instructions: Recurrent Seizures in Adults (ED) Additional Instructions: Please take your Keppra 500 mg twice daily. Please get plenty of sleep, avoid alcohol, and closely follow-up with your neurologist for your scheduled EEG and MRI. If you notice any worsening of your symptoms, or any new symptoms such as vomiting, diarrhea, fever, chills, shortness of breath, chest pain, numbness, weakness, or fainting , please return immediately to the emergency department for reevaluation. Please follow up with your primary care provider as soon as possible for reassessment and reevaluation. As always, it was a pleasure participating in your medical care today. Referrals: Mario Gomez [Primary Care Provider] - Medical Decision Making This is a pleasant 23-year-old male who presents today for evaluation of seizure. He was recently diagnosed with a seizure a month ago, he has been taking gabapentin from his PCP, and recently saw a neurologist from [place] Dr. Carmichael, who prescribed medication which the patient is not filled for the past week, nor obviously taken. This is his first seizure since he was seen by the neurologist. He is scheduled for an outpatient MRI and EEG but has not yet had these. Seizure lasted a few minutes while he was in the passenger seat of his 's car. He had no bowel or bladder incontinence. No tongue mastication. Physical exam demonstrates no focal neurologic deficits, no evidence of significant illness, fever, or meningitis. I am concerned that the patient's seizures may be secondary to not taking the medication that was recently prescribed. We will rehydrate the patient, and reassess. We will figure out what the medication was from the local pharmacy. Of note the patient did have some alcohol last night, this may be a precipitating factor, however I am uncertain. With no neurologic deficits, I do not think that a CT head is indicated at this time. 3:57pm Patient's laboratory workup is returned relatively benign. No significant abnormalities. No significant electrolyte deficiencies. We did get the CT scan results from [facility] that was dated 07/14/18 and it was read impression: Normal examination. Has signed and read by Dr. Grzegorz Harvey MD. we also found the prescription result from [place] which was a prescription for Keppra 500 twice daily for seizures. We will give him a loading dose of 1 g of Keppra here, and he states that he will be able to fill his prescription this afternoon. With a continued normal neurologic exam, no focal neurologic defic its, no evidence of meningitis, and medical noncompliance being at the highest end of my differential for the cause of his symptoms I feel he can be safely discharged home. I recommended that he avoid any alcohol, continue to get good amount of sleep, and closely follow-up with his neurologist. We discussed red flags for which to return, I have extensively reviewed the treatment plan and discharge instructions with the patient and their family. I have addressed all patient concerns at this time. The patient and family was made aware of what symptoms to monitor for that would warrant a return to the emergency department. Discussed the plan with the patient and family, they demonstrate verbal understanding and agreement with our assessment and plan at this time. HPI General Date/Time Provider Initiated Documentation: 07/26/18 14:46 . HPI Narrative: This is a 23-year-old male with a past medical history of seizures that was recently diagnosed 1 month ago. He just saw a neurologist Dr. Fredo Tai 1 week ago. He has been on gabapentin by his PCP for seizures however Dr. Carmichael prescribed a new medication, which the patient has not started taking and does not know what it was. Since then this is his first seizure since his last visit. His seizure occurred today roughly an hour prior to arrival. His tonic-clonic/grand mal. He was in the passenger seat and his was driving him. It lasted just a few minutes and resolved on its own. He had no bowel or bladder incontinence. He did not bite his tongue. He does admit to a mild to moderate headache at this time, as well as some tingling in his legs which she states her symptoms that been calm and after his seizures. He does admit to drinking some alcohol last night but denies any IV or illicit drugs. He denies any other medication changes or new behaviors. Patient denies any significant past surgical history or past family history. He denies any IV or illicit drug use. He has no other complaints or modifying factors at this Related Data Home Medications Medication Instructions Recorded Confirmed gabapentin 300 mg PO TID 07/26/18 07/26/18 ibuprofen [IBU-200] 400 mg PO QID PRN 07/26/18 07/26/18 levetiracetam [Keppra] 500 mg PO BID 07/26/18 07/26/18 Allergies Allergy/AdvReac Type Severity Reaction Status Date / Time No Known Allergies Allergy Unverified 07/26/18 14:47 General Stated Complaint: Seizure ANGIE: 2 Review of Systems Review of Systems All systems reviewed & are unremarkable except as noted in HPI and below PFSH Social History Smoking/Tobacco Use Status: Current every day Exam Narrative Exam Narrative: 1.Const: Well-nourished, Well-developed, appearing stated age 2.Eyes: PERRL, no conjunctival injection, and symmetrical lids. 3.ENT: Atraumatic external nose and ears. Moist MM. Neck: Symmetric, trachea midline, No thyromegaly. Patient demonstrates good movement of cervical neck. There is no nuchal rigidity, no nuchal tenderness. Patient is able to flex the neck without any difficulty or significant pain. Negative Kernig's and Brudzinski sign. No evidence of bite wheat on the tongue, or lips. 4.CVS: +S1/S2, No murmurs or gallops. Peripheral pulses 2+ and equal in all extremities. Brisk capillary refill in all extremities. 5.RESP: Unlabored respiratory effort. Clear to auscultation bilaterally. No wheezes rales or rhonchi 6.GI: Soft, Nontender/Nondistended, No hepatosplenomegaly. No guarding or rebound. 7.MSK: Normocephalic/Atraumatic, Extremities w/o deformity or ttp No cyanosis or clubbing, Normal movement of all extremities. No midline tenderness to palpation over the CTLS spine. Normal ROM in flexion, extension, side bend, and rotation. Patient has +5 out of 5 strength in the lower extremities in dorsiflexion and plantarflexion, knee flexion and extension, hip flexion and extension. There is +2 over 2 dorsalis pedis pulses bilaterally. There is normal sensation to the skin with light touch at the foot, knee, and hip. Normal saddle sensation. Good sensation over the deep sural nerve area bilaterally. Rectal exam deferred. Reflexes are +2 over 4 in the patellar reflex bilaterally. +5 out of 5 strength in the medial, ulnar, radial nerve distribution bilaterally in the hands as well as intact light touch sensation to these dermatomes on the hands 8.Skin: Warm, Dry. No rashes or lesions. 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 Sensation grossly intact, no focal neurologic deficits. All 6 cardinal planes of vision are fully intact. No evidence of rotatory or vertical nystagmus. The patient demonstrated a normal [id number], good dexterity. There was no evidence of dysdiadochokinesia. Patient was able to ambulate without difficulty. There was no wide-based gait. Romberg, and bjod-[id number] are both normal on testing. Sensation was intact bilaterally as well as muscle strength bilaterally for all extremities. Patient was able to verbalize butter cup with no slurring, or miss pronunciation. 10.Psych: (AAO) x3. Appropriate mood and affect Course Vital Signs Temperature 36.9 C 07/26/18 14:40 Pulse 77 07/26/18 14:40 Respiratory Rate 16 07/26/18 14:40 Blood Pressure 132/72 07/26/18 14:40 Pulse Oximetry 98 07/26/18 14:40 Temperature 36.9 C 07/26/18 14:40 Temperature Source Tympanic 07/26/18 14:40 Pulse 77 07/26/18 14:40 Respiratory Rate 16 07/26/18 14:40 Respiratory Effort Non-Labored 07/26/18 14:44 Blood Pressure 132/72 07/26/18 14:40 Blood Pressure Position Sitting 07/26/18 14:40 Pulse Oximetry 98 07/26/18 14:40 Oxygen Delivery Method Room Air 07/26/18 14:40 Oxygen Flow Rate 0 07/26/18 14:40 Pain Level 10 07/26/18 14:40
[2018-07-26 15:01] LABS: Absolute Basophil Count 0.07 k/cumm (0.0-0.2); Absolute Eosinophil Count 0.11 k/cumm (0.0-0.7); Absolute Lymphocyte Count 0.82 k/cumm (1.2-3.4); Absolute Monocyte Count 0.56 k/cumm (0.11-0.7); Absolute Neutrophil Count 3.31 k/cumm (1.2-6.7); Basophils % 1.4; Eosinophils % 2.3; HCT 45.3 % (40.0-50.0); HGB 15.9 g/dL (13.5-17.5); Lymphocytes % 16.8; Mean Corp. HGB Concentration 35.1 g/dL (32.0-36.0); Mean Corpuscular Hemoglobin 31.4 pg (27.0-33.0); Mean Corpuscular Volume 89.3 fL (80-95); Monocytes % 11.5; Platelet Count 262 x1000/uL (130-400); RBC 5.07 m/cumm (4.50-6.00); RBC Distribution Width 12.7 % (11.8-14.1); White Blood Cell Count 4.87 k/cumm (4.4-10.8)
[2018-07-26 15:15] LABS: ALT 28 U/L (12-78); AST 14 U/L (15-37); Alkaline Phosphatase 57 U/L (46-116); Anion Gap 9.7 mmol/L (3-11); BUN 12 mg/dL (7-18); Bilirubin, Total 0.4 mg/dL (0.2-1.0); CO2 26.3 mmol/L (21.0-32.0); CREATININE 0.81 mg/dL (0.70-1.30); Calcium 8.8 mg/dL (8.5-10.1); Chloride 106 mmol/L (98-107); Glucose 107 mg/dL (70-100); Sodium 142 mmol/L (136-145); Total Protein 6.8 g/dL (6.4-8.2)
== END 2018-07-26 16:56 | disposition home or self-care (01) ==
LOC: ER 16:28
PROVIDERS: Emergency Provider Student in an Organized Health Care Education/Training Program; PCP Physician Assistant
DX: R56.9 Unspecified convulsions (principal); Z91.19 Patient's noncompliance with other medical treatment and regimen
CPT/HCPCS: 36415; 80053; 96361; 96365; 99284; 85025; 99283; J1953